=== PATIENT | male | born 1995 | race Caucasian/White ===

== ENCOUNTER 2018-12-29 22:50 | Emergency (ER) | payer OTHER ==
[2018-12-30] MEDS: OLANZAPINE 10 MG VIAL IM (00:03)
== END 2018-12-30 01:49 | disposition home or self-care (01) ==
LOC: E/R 12-30 01:49
DX: F99 Mental disorder, not otherwise specified (principal); S62.521A Displaced fracture of distal phalanx of right thumb, initial encounter for closed fracture; F17.210 Nicotine dependence, cigarettes, uncomplicated; W22.01XA Walked into wall, initial encounter; Y92.9 Unspecified place or not applicable
CPT/HCPCS: 29130; 73140; 96372; 99284-25

== ENCOUNTER 2019-01-17 08:43 | Day surgery (SDC) | payer OTHER ==
[~2019-01-17 08:43] MED LIST: CEFAZOLIN 2 GM/50 ML (PMX) 50 ML IVPB
[2019-01-17] MEDS ORDERED: BACITRACIN/POLYMYXIN 28.35 GM OINT TOP (10:04)
[2019-01-17] MEDS ORDERED: LIDOCAINE 1% (MPF) 30 ML INJ (10:04)
[2019-01-17] MEDS ORDERED: POLYMYXIN/BACITRACIN 1L IRRIG (10:15)
[2019-01-17] MEDS ORDERED: CEFAZOLIN 1 GM INJ (10:20)
[2019-01-17] MEDS ORDERED: SEVOFLURANE 15 MIN (10:20)
[2019-01-17] MEDS ORDERED: FENTAnyl 50 MCG/ML VIAL (10:24)
[2019-01-17] MEDS ORDERED: EPHEDrine 25 MG/5 ML SYG IV (10:30)
[2019-01-17] MEDS ORDERED: HYDROmorphONE 1 MG/5 ML IV SYRINGE IV ×3 (10:30)
[2019-01-17] MEDS ORDERED: LABETALOL HCL 20MG INJ IV (10:30)
[2019-01-17] MEDS ORDERED: DIPHENHYDRAMINE 50 MG INJ IV (10:30)
[2019-01-17] MEDS ORDERED: hydrALAzine 20 MG INJ IV (10:30)
[2019-01-17] MEDS ORDERED: LEVALBUTEROL (NEB) 0.63 MG/3 ML AMP HHN (10:30)
[2019-01-17] MEDS ORDERED: ALBUTEROL 0.083% (NEB) 2.5 MG/3 ML AMP HHN (10:30)
[2019-01-17] MEDS ORDERED: KETOROLAC 15 MG INJ IV (10:30)
[2019-01-17] MEDS ORDERED: ONDANSETRON 4 MG INJ IV (10:30)
[2019-01-17] MEDS ORDERED: OXYCODONE/ACETAMINOPHEN (5/325) TAB PO ×2 (10:30)
[2019-01-17] MEDS ORDERED: FENTAnyl 50 MCG/ML VIAL IV ×2 (10:30)
[2019-01-17] MEDS ORDERED: ATROPINE 1 MG/10 ML SYRINGE IV (10:30)
[2019-01-17] MEDS ORDERED: morphine 2 MG INJ IV ×2 (10:30)
[2019-01-17] MEDS: BUPIVACAINE 0.25% (MPF) 30 ML INJ (10:53)
[2019-01-17 10:58] LABS: ADD MAN DIFF? NO
[2019-01-17 11:00] LABS: WHITE BLOOD COUNT 5.8 10^3/ul (4.8-10.8)
[2019-01-17 11:00] LABS: BASOPHIL # 0.1 10^3/ul (0.0-0.1); BASOPHILS % 0.9 % (0.0-2.0); EOSINOPHILS # 0.1 10^3/ul (0.0-0.5); EOSINOPHILS % 0.9 % (0.0-7.0); HEMATOCRIT 41.8 % (42.0-52.0); HEMOGLOBIN 13.2 g/dl (14.0-18.0); LYMPHOCYTES # 1.9 10^3/ul (0.8-2.9); LYMPHOCYTES % 33.3 % (15.0-51.0); MEAN CORPUSCULAR HEMOGLOBIN 27.7 pg (29.0-33.0); MEAN CORPUSCULAR HGB CONC 31.6 g/dl (32.0-37.0); MEAN CORPUSCULAR VOLUME 87.8 fl (82.0-101.0); MONOCYTE # 0.6 10^3/ul (0.3-0.9); MONOCYTES % 9.8 % (0.0-11.0); NEUTROPHIL # 3.2 10^3/ul (1.6-7.5); NEUTROPHILS % 54.6 % (39.0-77.0); PLATELET COUNT 233 10^3/UL (140-415); RED BLOOD COUNT 4.76 10^6/ul (4.70-6.10); RED CELL DISTRIBUTION WIDTH 13.3 % (11.5-14.5)
[2019-01-17] MEDS ORDERED: ONDANSETRON 4 MG INJ (11:00)
[2019-01-17] MEDS ORDERED: LIDOCAINE 2% (SDV) 5 ML INJ (11:00)
[2019-01-17] MEDS ORDERED: PROPOFOL 60 ML (11:00)
[2019-01-17 11:17] LABS: ALANINE AMINOTRANSFERASE 17 IU/L (13-69); ALBUMIN 4.3 g/dl (3.3-4.9); ALBUMIN/GLOBULIN RATIO 1.38; ALKALINE PHOSPHATASE 72 IU/L (42-121); ANION GAP 10 (5-13); ASPARTATE AMINO TRANSFERASE 17 IU/L (15-46); BLOOD UREA NITROGEN 10 mg/dl (7-20); CALCIUM 9.6 mg/dl (8.4-10.2); CARBON DIOXIDE 27 mmol/L (21-31); CHLORIDE 104 mmol/L (97-110); CREATININE 0.83 mg/dl (0.61-1.24); Estimated GFR > 60 mL/min (>60); GLUCOSE 103 mg/dl (70-220); SODIUM 141 mmol/L (135-144); TOTAL PROTEIN 7.4 g/dl (6.1-8.1)
[2019-01-17 11:42] LABS: BILIRUBIN,INDIRECT 0.4 mg/dl (0-1.1); BILIRUBIN,TOTAL 0.4 mg/dl (0.2-1.3)
[2019-01-17 15:29] LABS: INR 0.97
[2019-01-17 15:30] LABS: PARTIAL THROMBOPLASTIN TIME 28.2 Sec (23.0-35.0)
== END 2019-01-17 13:11 | disposition home or self-care (01) ==
LOC: SDS 08:43
DX: S62.521A Displaced fracture of distal phalanx of right thumb, initial encounter for closed fracture (principal); F41.8 Other specified anxiety disorders; F12.90 Cannabis use, unspecified, uncomplicated; F17.210 Nicotine dependence, cigarettes, uncomplicated; X58.XXXA Exposure to other specified factors, initial encounter; Y93.89 Activity, other specified; Y92.89 Other specified places as the place of occurrence of the external cause; Y99.8 Other external cause status
CPT/HCPCS: 26756; 73130-RT; 80053; 85025; 85610; 85730

== ENCOUNTER 2019-02-09 07:44 | Emergency (ER) | payer OTHER | END 2019-02-09 09:42 | disposition home or self-care (01) | LOC: FTE 07:44 | DX: S62.501A Fracture of unspecified phalanx of right thumb, initial encounter for closed fracture (principal); F17.210 Nicotine dependence, cigarettes, uncomplicated; X58.XXXA Exposure to other specified factors, initial encounter; Y92.9 Unspecified place or not applicable; Z46.89 Encounter for fitting and adjustment of other specified devices | CPT/HCPCS: 29125; 99283-25 ==